=== PATIENT | male | born 1955 | race Caucasian/White ===

== ENCOUNTER 2017-04-08 21:38 | Emergency (ER) | payer BC ==
[~2017-04-08] VITALS: Ht 180.3 cm; Wt 109.9 kg
[~2017-04-08 21:38] MED LIST: ATORVASTATIN CA20 MG PO; DAILY VITE1 EAC1 PO; FLOMAX0.4 MG PO; HYDROCHLOROTHIA25 MG PO; LISINOPRIL10 MG PO; PENTASA500 MG PO; PERCOCET 5/31 TABLET PO; POTASSIUM CITR15 MEQ PO; TORADOL10 MG PO; VICODIN,LORT1 TABLET PO; ZOFRAN4 MG PO
[2017-04-08 21:46] VITALS: BP 149/92
[2017-04-08 22:11] LABS: HEMATOCRIT 40.1 % (38.0-50.0); MCH 28.8 PG (29.0-34.0); MCHC 33.7 G/DL (30.0-36.0); MCV 85.5 FL (86-99); MEAN PLAT.VOLUME 9.4 uM^3 (9.0-12.4); NRBC (%) 0.1 /100 WBC (0-0); PLATELET COUNT 215 K/uL (156-360); RBC DIS.WIDTH-CV 13.4 % (11.8-14.6); RBC DIS.WIDTH-SD 41.8 % (39-53); RED BLOOD COUNT 4.69 M/uL (4.00-5.50); WHITE BLOOD COUNT 16.7 K/uL (4.1-10.2)
[2017-04-08 22:23] LABS: ADD MIUA? YES; BILIRUBIN NEGATIVE; BLOOD MODERATE; COLOR YELLOW ((YELLOW)); GLUCOSE (STRIP) NEGATIVE; KETONES NEGATIVE; LEUKOCYTES NEGATIVE; NITRITE NEGATIVE; PROTEIN (STRIP) NEGATIVE; SPECIFIC GRAVITY 1.021 (1.000-1.030); UROBILINOGEN 0.2 MG/DL (0.2-1.0)
[2017-04-08 22:26] LABS: BACTERIA NONE SEEN /HPF; EPITHELIAL CELLS RARE /HPF; MUCUS NONE SEEN /LPF; RED BLOOD CELLS 20-30 /HPF (0-5); UCUL ADDED? NO; WHITE BLOOD CELLS 0-5 /HPF (0-5)
[2017-04-08 22:30] LABS: ANION GAP 10 MEQ/L (2-14); CHLORIDE 104 MEQ/L (99-109); POTASSIUM 4.1 MEQ/L (3.7-5.4); SAMPLE HEMOLYSIS CHECK 0; SAMPLE ICTERIC CHECK 0; SAMPLE LIPEMIA CHECK 0; SODIUM 139 MEQ/L (136-147); TOTAL BILIRUBIN 0.3 MG/DL (0.0-1.0)
[2017-04-08 22:36] LABS: ALKALINE PHOSPHATASE 70 IU/L (3-129); GFR ESTIMATE (CALCULATED) 55 mL/min/; GLUCOSE 102 mg/dL (70-99); UREA NITROGEN (BUN) 25 mg/dL (9-23)
== END 2017-04-08 23:19 | disposition home or self-care (01) ==
LOC: EME 21:38
DX: N20.0 Calculus of kidney (principal); I10 Essential (primary) hypertension; Z87.442 Personal history of urinary calculi
CPT/HCPCS: 80053; 81003; 85027; 99281; 99284; J1885

== ENCOUNTER → 2017-04-09 | Outpatient (CLI) | payer BC | END | disposition home or self-care (01) | LOC: CDC 14:02 | DX: Z01.810 Encounter for preprocedural cardiovascular examination (principal); R94.31 Abnormal electrocardiogram [ECG] [EKG] | CPT/HCPCS: 93000 ==

== ENCOUNTER 2017-12-13 16:24 | Observation (INO) | payer BC ==
[~2017-12-13] VITALS: Ht 177.8 cm; Wt 114.5 kg
[2017-12-13 17:15] LABS: HEMATOCRIT 40.1 % (38.0-50.0); HEMOGLOBIN 13.8 G/DL (12.5-16.6); MCH 29.1 PG (29.0-34.0); MCHC 34.4 G/DL (30.0-36.0); MCV 84.6 FL (86-99); PLATELET COUNT 227 K/uL (156-360); RBC DIS.WIDTH-SD 43.3 % (39-53); RED BLOOD COUNT 4.74 M/uL (4.00-5.50); WHITE BLOOD COUNT 10.1 K/uL (4.1-10.2)
[2017-12-13 17:26] LABS: CHLORIDE 102 mEq/L (99-109); POTASSIUM 3.7 mEq/L (3.7-5.4); SODIUM 138 mEq/L (136-147)
[2017-12-13 17:27] LABS: GLUCOSE 120 mg/dL (70-99)
[2017-12-13 17:31] LABS: CREATININE 1.1 mg/dL (0.6-1.3); GFR ESTIMATE (CALCULATED) > 59 mL/min/ (58.99-99999)
[2017-12-13 17:32] LABS: UREA NITROGEN (BUN) 26 mg/dL (9-23)
[2017-12-13 17:37] LABS: TROP-I INTERPRETATION NEGATIVE; TROPONIN-I 0.02 ng/mL (0.0-0.30)
[2017-12-13 17:55] LABS: D-DIMER ELISA < 150.00 ng/mLDDU (<230)
[2017-12-13] MEDS ORDERED: MOTRIN IB200 MG PO (18:33)
[2017-12-13] MEDS ORDERED: FLONASE16 G1 BOTH NARES (18:33)
[2017-12-13] MEDS ORDERED: ROGAINE60 ML TP (18:34)
[2017-12-13 20:51] VITALS: BP 157/87
[2017-12-13 23:46] VITALS: BP 119/63
[2017-12-14 01:06] LABS: TROP-I INTERPRETATION NEGATIVE; TROPONIN-I 0.02 ng/mL (0.0-0.30)
[2017-12-14 04:20] VITALS: BP 113/58
[2017-12-14 06:47] LABS: HEMOGLOBIN 13.7 G/DL (12.5-16.6); MCH 28.9 PG (29.0-34.0); MCHC 33.4 G/DL (30.0-36.0); MCV 86.5 FL (86-99); PLATELET COUNT 220 K/uL (156-360); RBC DIS.WIDTH-CV 14.2 % (11.8-14.6); RBC DIS.WIDTH-SD 45.2 % (39-53); RED BLOOD COUNT 4.74 M/uL (4.00-5.50)
[2017-12-14 07:06] LABS: TROP-I INTERPRETATION NEGATIVE; TROPONIN-I 0.02 ng/mL (0.0-0.30)
[2017-12-14 07:10] LABS: CHLORIDE 104 MEQ/L (99-109); CREATININE 1.1 MG/DL (0.6-1.3); GFR ESTIMATE (CALCULATED) > 59 mL/min/ (58.99-99999); GLUCOSE 118 mg/dL (70-99); SODIUM 139 MEQ/L (136-147); UREA NITROGEN (BUN) 24 mg/dL (9-23)
[2017-12-14 07:30] VITALS: BP 120/74
[2017-12-14 11:52] VITALS: BP 125/72
== END 2017-12-14 14:43 | disposition home or self-care (01) ==
LOC: EME 16:24 → EDOF 18:54 → ENRESERV 18:55 → 4SOUTH 20:40
PROVIDERS: Internal Medicine
DX: R07.9 Chest pain, unspecified (principal); I10 Essential (primary) hypertension; E78.5 Hyperlipidemia, unspecified; R73.01 Impaired fasting glucose; G47.30 Sleep apnea, unspecified; Z82.49 Family history of ischemic heart disease and other diseases of the circulatory system; Z82.3 Family history of stroke
CPT/HCPCS: 71046; 80048; 84484; 85027; 85379; 93005; 94660; 99281; 99285; G0378

== ENCOUNTER 2017-12-15 10:48 | Day surgery (SDC) | payer BC ==
[~2017-12-15] VITALS: Ht 177.8 cm; Wt 107.6 kg
[~2017-12-15 10:48] MED LIST changes: +FLONASE16 G1 BOTH NARES; +MOTRIN IB200 MG PO; +ROGAINE60 ML TP
[2017-12-15 15:20] VITALS: BP 119/75
== END 2017-12-15 19:20 | disposition short-term general hospital (02) ==
LOC: CATH 10:48 → ENRESERV 13:55 → 2SOUTH 13:56 → ENRESERV 14:07 → 4EAST 15:12
PROC: 4A033BC Measurement of Arterial Pressure, Coronary, Percutaneous Approach (ICD-10-PCS; principal; 2017-12-15)
PROC: 4A023N7 Measurement of Cardiac Sampling and Pressure, Left Heart, Percutaneous Approach (ICD-10-PCS; principal; 2017-12-15)
PROC: B2111ZZ Fluoroscopy of Multiple Coronary Arteries using Low Osmolar Contrast (ICD-10-PCS; principal; 2017-12-15)
PROC: B2151ZZ Fluoroscopy of Left Heart using Low Osmolar Contrast (ICD-10-PCS; principal; 2017-12-15)
DX: I25.10 Atherosclerotic heart disease of native coronary artery without angina pectoris (principal); I25.84 Coronary atherosclerosis due to calcified coronary lesion; I10 Essential (primary) hypertension; E78.5 Hyperlipidemia, unspecified; G47.33 Obstructive sleep apnea (adult) (pediatric); Z82.49 Family history of ischemic heart disease and other diseases of the circulatory system
CPT/HCPCS: 85347; C1769; C1887; G0378; J0153; J1644; J2250; J3010; J7040